=== PATIENT | male | born 1935 | race Caucasian/White ===

== ENCOUNTER → 2016-11-13 | Outpatient (CLI) | payer OTHER, BC ==
[~2016-11-13] MED LIST: ALFU10TA30 PO; ASCA500 PO; ASPEC81 PO; BNC20 PO; CIPR-255 PO; CLC100 PO; CLR10 PO; CRG3125 PO; CYAN10005 PO; DUTA0.5C PO; FRRS300 PO; MULT-190 PO; MULT-506 PO; SIMV40TA2 PO; THIA250T7 PO; vitamin b 12 PO
--- NOTE | 2016-11-13 10:52 | DIAGNOSTIC IMAGING REPORT ---
KUB CLINICAL HISTORY: N20.0 [id number] COMPARISON STUDY: 09/08/2015 FINDINGS: There is no pathologic bowel dilatation. There is a 5 mm mid to lower pole right renal calculus. There is a faint 1 cm opacity projected over the lower pole the left kidney. It is unclear whether this represents a calculus or overlying enteric contents. IMPRESSION: 1. 5 mm right renal calculus 2. 1 cm left renal calculus versus overlying enteric contents Electronically signed by: Dimas Eng M.D. 11/13/2016 10:51 AM Dictated Date/Time: 11/13/2016 10:42 AM
== END | disposition home or self-care (01) ==
LOC: C.RAD 10:15
PROVIDERS: ATTEND Urology
DX: N20.0 Calculus of kidney (principal)